=== PATIENT | male | born 1960 | race Caucasian/White ===

== ENCOUNTER 2019-12-13 06:17 | Day surgery (SDC) | payer OTHER ==
[2019-12-12 09:57] VITALS: BMI 30.2
--- NOTE | 2019-12-12 10:46 | HP ---
HISTORY AND PHYSICAL CHIEF COMPLAINT: Right shoulder pain. 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 He notes it has increased recently. He has had pain with overhead use and at night. He has tried therapy in addition to medications and injection without much relief. He notes he is having significant limitation because of shoulder pain. He did undergo right rotator cuff repair 20 years ago. PAST MEDICAL HISTORY: Significant for hypothyroidism, hypertension, type 2 diabetes, and asthma. PAST SURGICAL HISTORY: Significant for bilateral total knee arthroplasty in addition to a right rotator cuff repair 20 years ago. CURRENT MEDICATIONS: Include glipizide, metformin, cholesterol medication and antihypertensives. He denies drug allergies. FAMILY HISTORY: Significant for cancer. SOCIAL HISTORY: Negative for current tobacco or alcohol use. 16 POINT REVIEW OF SYSTEMS: Otherwise reviewed and is noncontributory. PHYSICAL EXAMINATION: On examination, the patient is approximately 5 foot 9, 198 pounds of mesomorphic habitus. HEENT: Exam is nonfocal. Neck is supple. On examination of his right shoulder, he is tender about the anterior subacromial space in the bicipital groove. He has moderate subacromial crepitus. Active range of motion, forward elevation 135 degrees, external rotation with arm at side 60 degrees, internal rotation to L1. Motor strength 5-/5 for abduction and external rotation. Impingement test, Neer test, and Speed test are positive. He has pain with cross-body adduction. His distal neurovascular appears intact in the right upper extremity. Previous MRI of the right shoulder by report shows evidence of tendinosis of the rotator cuff with possible partial-thickness tearing in addition to significant bicipital tendinosis. IMPRESSION: 1. Right rotator cuff strain/possible partial-thickness tear versus impingement. 2. Right proximal bicipital tendinosis. 3. Right acromioclavicular joint arthritis. RECOMMENDATIONS: I talked to the patient at length regarding his condition and treatment options. At this point, he is quite symptomatic, despite extensive conservative measures. After a thorough discussion, he opts to proceed with surgery. We will plan to proceed with arthroscopic evaluation with probable subacromial decompression, rotator cuff debridement versus repair, and possible biceps tenotomy. We will also consider distal clavicular resection. We will likely perform that as an outpatient procedure. MMODL / IJN: [id number] /
[~2019-12-13 06:17] MED LIST: DEXAMETHASONE SOD PHOSPHATE 10 MG/ML 1 ML VIAL IV ONE; LACTATED RINGERS 1,000 ML IV SCH; LIDOCAINE 1% (10MG/ML) FOR IV START INTRADERMA PRN; MIDAZOLAM 2 MG/2 ML VIAL IV PRN; ONDANSETRON 4 MG/2 ML VIAL IVP ONE; fentaNYL (PF) 50 MCG/ML 2 ML AMP IVP PRN
[2019-12-13 07:04] LABS: Glucose,Whole Blood 221 mg/dL (75-99)
[2019-12-13] MEDS ORDERED: LIDOCAINE 1% INJ 10MG/ML (20 ML MDV) ONE (07:51)
[2019-12-13] MEDS ORDERED: fentaNYL (PF) 50 MCG/ML 2 ML AMP ONE (07:51)
[2019-12-13] MEDS ORDERED: ROPIVACAINE 5 MG/ML 30 ML VIAL ONE (07:51)
[2019-12-13] MEDS ORDERED: DEXAMETHASONE SOD PHOS (MDV) 100 MG/10 ML VIAL ONE (07:51)
[2019-12-13] MEDS ORDERED: PHENYLEPHRINE-0.9% NACL SYG 1 MG/10 ML SYRINGE ONE (07:51)
[2019-12-13] MEDS ORDERED: PROPOFOL 10 MG/ML 20 ML VIAL IV ONE (07:51)
[2019-12-13] MEDS ORDERED: SUCCINYLCHOLINE CHLORIDE 100 MG/5 ML SYR IV ONE (07:51)
[2019-12-13] MEDS ORDERED: ePHEDrine SULFATE/0.9% NACL/PF 50 MG/5 ML SYRINGE IV ONE (07:51)
--- NOTE | 2019-12-13 07:55 | P.ANPRN ---
Procedure Note - Anesthesia - Nerve Block Performed Right Interscalene Single Time Out Performed: Yes ([id number]) Date of Procedure: 12/13/19 Procedure Start Time: : Procedure Stop Time: : Location of Patient: PreOp Indication: Acute Post-Operative Pain, Dx/Pain Location (Right shoulder) Specifically requested for management of pain by DrAdryan: Alex Rocha Sedation Type: Sedate with meaningful contact maintained Preparation: Sterile Prep Position: Supine Needle Types: Facet Needle Gauge: 20 Ultrasound used to visualize needle placement: Yes Ultrasound used to observe medication spread: Yes Injectate: 0.5% Ropivacaine (see comment for volume) (20 mls) Blood Aspirated: No Pain Paresthesia on Injection Noted: No Resistance on Injection: Normal Image Stored and Saved: Yes Events: Uneventful and Well Tolerated
[2019-12-13] MEDS ORDERED: LACTATED RINGERS 1,000 ML IV ONE (08:32)
[2019-12-13] MEDS ORDERED: EPINEPHrine (PF) 1 ML in SODIUM CHLORIDE 0.9% IRRIGATIO 3,000 ML IRRIGATION ONE ×8 (08:32)
--- NOTE | 2019-12-13 09:16 | P.OP ---
Date of Procedure: 12/13/19 Preoperative Diagnosis: Right shoulder impingement Postoperative Diagnosis: High-grade partial-thickness tear intra-articular portion long head of the biceps right shoulder, 1 cm tear supraspinatus tendon, acromioclavicular joint arthritis/synovitis. Procedure(s) Performed: Right shoulder arthroscopic subacromial decompression/distal clavicular resection/biceps tenotomy/rotator cuff repair Implants: Arthrex 5.5 mm swivel lock anchor 1 Anesthesia: KESHIA, regional Surgeon: Alex Rocha Tractor Crane Operator #1: Sal Ryan Estimated Blood Loss (ml): 10 Pathology: none sent Condition: stable Disposition: PACU Indications for Procedure: The patient is a 59-year-old male who presents with persistent/progressive right shoulder pain despite previous conservative measures. A discussion of the risks and benefits of operative intervention versus continued conservative measures was made with patient. He opted to proceed with surgery. Operative risks to include infection, neurovascular injury, development of blood clots, possible tendon rerupture, possible need for subsequent procedures was discussed. Informed consent was obtained. Operative Findings: As below Description of Procedure: The patient was brought to the operating room, and after induction of general anesthesia was placed in a beachchair position. A preoperative interscalene block was placed for postoperative analgesia. I examined the right shoulder. There was no gross block to passive motion or gross glenohumeral instability. The right upper extremity was prepped and draped in normal fashion. The bony outlines the acromion, distal clavicle, and coracoid process were outlined with a skin marker. The glenohumeral joint was inflated with 50 mL of saline utilizing a spinal needle from posterior approach. A posterior portal was made through a 5 mm skin incision 1 cm medial and inferior to the posterior lateral border time. A blunt trocar was used to easily into the joint. Diagnostic arthroscopy was performed. An anterior portal was made just lateral to the coracoid process entering the joint above the subscapularis tendon. The subscapularis tendon appeared to be intact. Anterior labrum was intact. The inferior recess was inspected. The posterior labrum was intact. There was a high-grade partial-thickness tear of the long head of the biceps involving interarticular portion. It was elected to proceed with release at this point. This was released from the superior labrum with electrocautery and was allowed to retract to the bicipital groove. On inspection the rotator cuff, a high- grade partial-thickness tear involving the anterior aspect the supraspinatus was noted. The tear was completed with a motorized shaver. The arthroscope was placed into the subacromial space. A lateral portal was made 2 centimeters inferior to the anterior lateral border of the acromion. The soft tissue on the undersurface of the acromion was debrided with a motorized shaver and el ectrocautery clearly defining the anterior medial and lateral borders as well as the distal clavicle. An anterior inferior acromioplasty was performed with a motorized nevaeh starting anterolateral, then extending this posteriorly, then extending this medially. I converted to a flat acromion and this was verified in the posterior and lateral viewing portals. The distal 4 mm of the clavicle was resected with a motorized nevaeh. The greater tuberosity was lightly decorticating with a shaver down to a bleeding bony surface. Fiber tape was passed through the rotator cuff. A lateral 5.5 mm swivel lock anchor was placed utilizing the appropriate starting awl. The rotator cuff was tensioned and good purchase was obtained with the anchor. Final arthroscopic view showed adequate compression at the footprint. The arthroscope was then removed. The portals were closed with simple 3-0 nylon sutures. A sterile dressing was applied in addition to a sling. The patient was then awoken from general anesthesia and transferred to recovery room in good condition. Blood loss was estimated at 10 mL. No complications were incurred. Sponge and needle counts were correct in the case. Mark Anthony VARGAS assisted and the major components of the case to include arm positioning, anchor placement, and rotator cuff repair.
[2019-12-13] MEDS: HYDROmorphone 0.5 MG/0.5 ML SYRINGE IVP PRN ×4 (09:27→09:46)
[2019-12-13 09:28] VITALS: TEMP 97.1
[2019-12-13 09:47] LABS: Glucose,Whole Blood 239 mg/dL (75-99)
[2019-12-13 10:39] VITALS: RESP 16
[2019-12-13] MEDS ORDERED: HYDROcodone/APAP 5-325MG 1 EACH TAB PO ONE (10:57)
[2019-12-13 11:03] VITALS: BP 114/65; PULSE 78
== END 2019-12-13 11:51 | disposition home or self-care (01) ==
LOC: OR 06:17
PROVIDERS: ATTEND Orthopaedic Surgery
DX: S46.011A Strain of muscle(s) and tendon(s) of the rotator cuff of right shoulder, initial encounter (principal); S46.111A Strain of muscle, fascia and tendon of long head of biceps, right arm, initial encounter; M19.011 Primary osteoarthritis, right shoulder; M65.811 Other synovitis and tenosynovitis, right shoulder; I10 Essential (primary) hypertension; E11.319 Type 2 diabetes mellitus with unspecified diabetic retinopathy without macular edema; M19.90 Unspecified osteoarthritis, unspecified site; E78.5 Hyperlipidemia, unspecified; Z96.653 Presence of artificial knee joint, bilateral; Z98.890 Other specified postprocedural states; Z79.84 Long term (current) use of oral hypoglycemic drugs; Z79.899 Other long term (current) drug therapy
CPT/HCPCS: 64415; 76942; 29826; 29827; 29824; C1713; C1894; J2250; J1100 ×2; J0690; J2405; J0171; J2001; J3010; J2795; J2370; J0330; J2704; J1170

== ENCOUNTER → 2021-06-12 | Outpatient (CLI) | payer OTHER ==
--- NOTE | 2021-06-12 13:56 | XR ---
EXAMINATION TYPE: XR shoulder complete RT DATE OF EXAM: 06/12/2021 COMPARISON: NONE HISTORY: Pain TECHNIQUE: Three views are submitted. FINDINGS: The osseous structures are intact. There is no acute fracture or dislocation. Diffuse osteopenia mil d hypertrophic change of the AC joint. IMPRESSION: 1. AC joint arthropathy.
--- NOTE | 2021-06-12 13:56 | XR ---
EXAMINATION TYPE: XR humerus RT DATE OF EXAM: 06/12/2021 COMPARISON: NONE HISTORY: Pain TECHNIQUE: 2 views submitted. FINDINGS: Diffuse osteopenia. Hypertrophic change of the AC joint. IMPRESSION: 1. AC joint arthropathy. Correlate with MRI if there is concern for ligamentous or soft tissue injury .
== END | disposition home or self-care (01) ==
LOC: RADXRMAIN 13:19
PROVIDERS: ATTEND Emergency Medicine
DX: M19.011 Primary osteoarthritis, right shoulder (principal)